=== PATIENT | male | born 1945 | race Caucasian/White ===

== ENCOUNTER 2021-05-05 10:27 | Outpatient (CLI) | payer OTHER, MEDICARE, SELFPAY ==
--- NOTE | ~2021-05-05 | XR_ITS ---
XR knee RT 3V 05/05/2021 10:54 Indication: Right knee pain Procedure: 3 views right knee Comparison: No prior studies for comparison. Findings: No fracture, subluxation or dislocation. No joint space narrowing. No significant joint eff usion. No focal soft tissue abnormality. Impression: 1: No significant bone or joint abnormality. Reviewed, dictated and finalized at location A. NT MANAGEMENT SPECIALIST Impression: 1: No significant bone or joint abnormality.
== END 2021-05-05 10:28 | disposition home or self-care (01) ==
LOC: ANHIMG 10:32
PROVIDERS: PCP Family Medicine; Visit Provider Family Medicine
DX: M25.561 Pain in right knee (principal); G89.29 Other chronic pain
CPT/HCPCS: 73562

== ENCOUNTER 2021-11-04 12:21 | Outpatient (CLI) | payer OTHER, MEDICARE, SELFPAY ==
--- NOTE | ~2021-11-04 | MR_ITS ---
EXAMINATION: MR knee RT wo con DATE: 11/04/2021 13:34 INDICATION: Right knee pain TECHNIQUE: Magnetic resonance imaging (MRI) of the right knee was performed without intravenous contr ast. Sequences included coronal PD-weighted FSE, coronal PD-weighted FS FSE, sagittal T2-weighted FS E, sagittal PD-weighted FS FSE and axial PD weighted fat saturated FSE. COMPARISON: 10/22/2021 FINDINGS: Medial compartment: Medial meniscus is normal. Partial-thickness chondral ulceration with chondral surface regularity but without degenerative subchondral changes along the lateral margin of the anterior to central weightb earing medial femoral condyle. Lateral compartment: Longitudinal horizontal tear at the anterior body and anterior horn of the lateral meniscus. Partial- thickness chondral ulceration involving less than 50% the cartilage thickness but without degenerativ e subchondral changes at the central aspect of the lateral tibial plateau. Patellofemoral compartment: Full-thickness chondral fissuring and fibrillation of the cartilage extending in a band across the me dial patellar facet, apical ridge and lateral facet with underlying cortical irregularity and subarti cular edema-like signal change. Trochlear cartilage is normal. Ligaments and tendons: Anterior and posterior cruciate ligaments are normal. The medial collateral ligament and fibular [place] ateral ligament complex are normal. Mild distal quadriceps tendinopathy without discrete tear. Patell ar tendon is normal. The visualized medial and lateral hamstring tendons as well as the iliotibial ba nd are normal. Fluid: Minimal likely reactive right knee joint effusion. There are couple very small loose osteochondral ubaldo dies in the recess along the anterior margin of the lateral tibial plateau. Small King's cyst. Osseous/other: Normal marrow signal aside from the previous noted degenerative subarticular signal change at the pat yung. No fracture or pathologic marrow replacing process. IMPRESSION: 1. Lateral meniscal tear. 2. 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 Reviewed, dictated and finalized at location B. IMPRESSION: 1. Lateral meniscal tear. 2. Mild tricompartmental osteoarthritis most notable for extensive high-grade p atellar chondromalacia.
== END 2021-11-04 12:22 | disposition home or self-care (01) ==
PROVIDERS: PCP Family Medicine; Visit Provider Family Medicine
DX: S83.281D Other tear of lateral meniscus, current injury, right knee, subsequent encounter (principal); X58.XXXD Exposure to other specified factors, subsequent encounter; M17.11 Unilateral primary osteoarthritis, right knee
CPT/HCPCS: 73721

== ENCOUNTER 2022-04-29 10:07 | Outpatient (CLI) | payer OTHER, MEDICARE, SELFPAY ==
--- NOTE | ~2022-04-29 | NM_ITS ---
EXAMINATION: NM stress w perf spect multi DATE: 04/29/2022 11:50 INDICATION: Chest pain. TECHNIQUE: Rest images were obtained following intravenous administration of 9.44 mCi Tc99m tetrofosm in (Myoview). The patient performed an exercise activity. At peak exercise, 31.77 mCi Tc99m tetrofosm in (Myoview) was administered intravenously, and stress images were obtained. Data was reconstructed into short axis and horizontal and vertical long axis SPECT images. Gated SPECT images were also obta ined. COMPARISON: None. FINDINGS: There is no definite reversible or fixed perfusion abnormality to suggest ischemia or infar ction. There is no segmental wall motion abnormality. Left ventricular ejection fraction measures 6 9%. IMPRESSION: 1. No definite ischemia or infarct. 2. Normal left ventricular ejection fraction measuring 69%. Reviewed, dictated and finalized at location A. POLISHER
--- NOTE | 2022-04-29 10:23 | EST_ITS ---
Patient Info Name: Alex Shepherd Age: 76 years : 1945 Gender: Male Ht: 74 in Wt: 205 lbs BSA: 2.21 m2 HR: 77 bpm BP: 129 / 84 mmHg Heart Rhythm: Sinus Rhythm Exam Date: 04/29/2022 10:57 AM Exam Location: [facility] Stress Patient Status: Outpatient Admit Date: 04/29/2022 Staff Ordering Physician: Nichole Lugo MD Attending Provider: Nichole Lugo MD Exercise Technologist: Svetlana Kendall CT Exercise Physician: Srinivas Grimes DO Exam Type: CA stress test treadmill w NM Study Info Indications R07.9 - Chest pain, unspecified A nuclear stress test was performed. Summary 1. 1. Negative Anish exercise stress test for ischemic ST changes by ECG criteria. 2. 2. Good functional capacity, achieving 9.5 METs of workload. 3. 3. Appropriate HR response to exercise. 4. 4. Appropriate HR recovery at 1 minute post exercise. 5. 5. Nuclear scan to follow and will be reported separately. Please correlate with it. 6. 6. Patient informed of the above results. Protocol: Anish Stress ECG Details Stage: REST Duration (min): 9 min : 52 sec Speed (mph): 0.0 Grade (%): 0 HR (bpm): 77 SBP (mmHg): 129 DBP (mmHg): 84 METS: --- Stage: STAGE 1 Duration (min): 1 min : 0 sec Speed (mph): 1.7 Grade (%): 10 HR (bpm): 92 SBP (mmHg): 129 DBP (mmHg): 84 METS: --- Stage: STAGE 1 Duration (min): 2 min : 0 sec Speed (mph): 1.7 Grade (%): 10 HR (bpm): 97 SBP (mmHg): 129 DBP (mmHg): 84 METS: --- Stage: STAGE 1 Duration (min): 3 min : 0 sec Speed (mph): 1.7 Grade (%): 10 HR (bpm): 101 SBP (mmHg): 150 DBP (mmHg): 85 METS: --- Stage: STAGE 2 Duration (min): 1 min : 0 sec Speed (mph): 2.5 Grade (%): 12 HR (bpm): 108 SBP (mmHg): 150 DBP (mmHg): 85 METS: --- Stage: STAGE 2 Duration (min): 2 min : 0 sec Speed (mph): 2.5 Grade (%): 12 HR (bpm): 116 SBP (mmHg): 163 DBP (mmHg): 85 METS: --- Stage: STAGE 2 Duration (min): 3 min : 0 sec Speed (mph): 2.5 Grade (%): 12 HR (bpm): 119 SBP (mmHg): 163 DBP (mmHg): 85 METS: --- Stage: STAGE 3 Duration (min): 1 min : 0 sec Speed (mph): 3.4 Grade (%): 14 HR (bpm): 130 SBP (mmHg): 173 DBP (mmHg): 90 METS: --- Stage: STAGE 3 Duration (min): 1 min : 25 sec Speed (mph): 3.4 Grade (%): 14 HR (bpm): 131 SBP (mmHg): 173 DBP (mmHg): 90 METS: --- Stage: RECOVERY Duration (min): 0 min : 34 sec Speed (mph): 0.0 Grade (%): 0 HR (bpm): 115 SBP (mmHg): 173 DBP (mmHg): 90 METS: --- Stage: RECOVERY Duration (min): 1 min : 34 sec Speed (mph): 0.0 Grade (%): 0 HR (bpm): 91 SBP (mmHg): 173 DBP (mmHg): 90 METS: --- Stage: RECOVERY Duration (min): 2 min : 34 sec Speed (mph): 0.0 Grade (%): 0 HR (bpm): 86 SBP (mmHg): 173 DBP
== END 2022-04-29 10:08 | disposition home or self-care (01) ==
PROVIDERS: PCP Family Medicine; Visit Provider Family Medicine
DX: R07.9 Chest pain, unspecified (principal)
CPT/HCPCS: 78452; 93017; A9502

== ENCOUNTER 2022-05-15 08:18 | Outpatient (CLI) | payer OTHER, MEDICARE, SELFPAY ==
--- NOTE | 2022-06-03 14:05 | WPDHOMESLEEP ---
Sleep Study - Home Unattended Date of Study: 05/15/22 Ordering Provider: Franchesca Lugo MD Interpreting Provider: Annika Scott, DO Home Sleep Study Type: Watch PAT Height: 1.88 m Weight: 92.986 kg Body Mass Index: 26.3 Neck Circumference (inches): 15.25 [place]: 12 Reason for Sleep Study Daytime hypersomnia, witnessed apneas Sleep History The patient is a 76-year-old male with diabetes, dyslipidemia, hypertension and history of tobacco use that had a sleep study ordered by his primary care for evaluation of sleep apnea. The patient rarely awakens from sleep short of breath. He occasionally awakens at night with heartburn, belching or cough. He frequently snores and constantly loudly enough that others complain. He rarely has trouble sleeping when he has a cold. He occasionally wakes up gasping for air throughout the night. He frequently has breathing problems at night observed by himself or others. He occasionally sweats excessively at night. He rarely has heart palpitations or irregular heartbeats during the night. He frequently falls asleep during the day but rarely falls asleep while driving. He denies sleep paralysis and cataplexy. He occasionally has trouble at school or work due to sleepiness. He occasionally experiences vivid dreamlike scenes upon awakening or falling asleep. He denies feeling afraid of going to sleep. He rarely has nightmares. He occasionally remembers his dreams. He occasionally has thoughts racing through his mind. He denies feeling sad or depressed. He rarely has anxiety. He occasionally has muscular tension. He rarely notices parts of his body jerk. He rarely kicks during the night. He occasionally has crawling and aching feelings in his legs and occasionally has leg pain during the night. He frequently grinds his teeth during sleep but never awakens with morning jaw pain. He is occasionally bothered by pain during the day and occasionally awakened by pain during the night. He occasionally wakes up feeling stiff in the morning. He occasionally wakes up with sore achy muscles. He rarely wakes up with pain in the neck, spine or joints. He goes to bed between 1-2 a.m. on both weekdays and weekends. He is able to fall asleep within 5 minutes. He wakes up twice throughout the night to urinate. He is able fall back asleep within 5-10 minutes. He wakes up between 8-9 a.m. on weekdays and between 9-11 a.m. on the weekends. He typically gets 6-7 hours of sleep per night. He will stay in bed for 5 minutes after waking up in the morning. He currently lives with his . He denies consuming any caffeinated beverages within 2 hours of bedtime. He does engage in physical exercise before bedtime. He will read before falling asleep. He denies watching television before falling asleep. He will take naps in the afternoon or the evening and they are refreshing. He drinks 6 caffeinated beverages per day. He quit smoking 32 years ago. He denies alcohol and recreational drug use. [facility] Past Medical History Medical History Acne rosacea Chondromalacia of both patellae Dyslipidemia Essential (primary) hypertension Lateral meniscus tear Right knee pain Type 2 diabetes mellitus without complication, without long-term current use of insulin Surgical History Surgical History History of foot surgery b/l 2nd toe for hammer toes when 16 years old Family History Family History Father Family history of type 2 diabetes mellitus Mother Family history of type 2 diabetes mellitus H/O multiple myeloma Sibling Acute Crohn's disease Unknown Family history of cancer Multiple myeloma and stomach. Other Asthma Hypertension Social History Social History
[2022-06-03 14:15] VITALS: BMI 26.3
== END 2022-05-16 12:06 | disposition home or self-care (01) ==
LOC: ANHCSM 08:21
PROVIDERS: PCP Family Medicine; Visit Provider Family Medicine
DX: G47.10 Hypersomnia, unspecified (principal); G47.33 Obstructive sleep apnea (adult) (pediatric)
CPT/HCPCS: 95800

== ENCOUNTER 2022-07-04 01:21 | Day surgery (SDC) | payer OTHER, MEDICARE, SELFPAY ==
[2022-06-24 12:02] VITALS: BMI 26.3
--- NOTE | 2022-07-03 13:24 | PM.HPGS ---
History of Present Illness History of Present Illness Consent: Risks, benefits, and alternatives have been discussed and questions answered. Patient agrees to proceed with procedure. Chief complaint: neoplasm screening Narrative: Alex Shepherd is a 76 year old male Referred for colon cancer screening. Review of Systems Review of Systems: All systems reviewed & are unremarkable except as noted in HPI and below PMFSH Past Medical History Medical History Acne rosacea Chondromalacia of both patellae Dyslipidemia Essential (primary) hypertension Lateral meniscus tear Right knee pain Type 2 diabetes mellitus without complication, without long-term current use of insulin Surgical History Surgical History History of foot surgery b/l 2nd toe for hammer toes when 16 years old Family History Family History Father Family history of type 2 diabetes mellitus Mother Family history of type 2 diabetes mellitus H/O multiple myeloma Sibling Acute Crohn's disease Unknown Family history of cancer Multiple myeloma and stomach. 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 [employer] Gender identity (if verbalized by the patient): Male Sexual Orientation (if Verbalized by the Patient): Straight or Heterosexual Spiritual care concerns: No Meds Home Medications and Allergies Home Medications Medication Instructions Recorded Confirmed Type blood-glucose meter (Accu-Chek #1 ea 09/03/19 07/04/22 Rx Guide Glucose Meter) sildenafil 100 mg tablet 100 mg PO DAILY PRN sexual 04/11/20 07/04/22 Rx activity #10 tabs blood sugar diagnostic #100 ea 11/21/20 07/04/22 Rx lancets (OneTouch UltraSoft #100 ea 11/21/20 07/04/22 Rx Lancets) aspirin 325 mg tablet 325 mg PO DAILY 04/17/22 07/04/22 History hydrochlorothiazide 25 mg tablet 25 mg PO DAILY #90 tabs 04/17/22 07/04/22 Rx multivitamin 1 tablet PO DAILY 04/17/22 07/04/22 History amlodipine 10 mg tablet 10 mg PO DAILY #90 tabs 05/21/22 07/04/22 Rx empagliflozin 25 mg tablet 25 mg PO DAILY #90 tabs 05/21/22 07/04/22 Rx (Jardiance) metformin 500 mg tablet,extended 2,000 mg PO DAILY #360 tabs 06/10/22 07/04/22 Rx release 24 hr rosuvastatin 5 mg tablet 5 mg PO QPM #90 tabs 07/02/22 07/04/22 Rx Allergies Allergy/AdvReac Type Severity Reaction Status Date / Time No Known Allergies Allergy Verified 07/04/22 09:24 Exam Resp: Auscultation: clear to auscultation bilaterally Cardio: Rate: regular rate Rhythm: regular rhythm GI: GI Palp: Yes Soft to palpation and No Tenderness to palpation present (GI) Assessment and Plan Assessment and plan (1) Colon cancer screening: Code(s): Z12.11 - Encounter for screening for malignant neoplasm of colon Status: Acute Assessment and Plan: Colonoscopy with possible biopsy or polypectomy or cautery or injection of substances.
[2022-07-04 09:24] LABS: Glucose Point of Care 137 mg/dl (65-105)
[2022-07-04 09:25] VITALS: BP 123/76; PULSE 80; RESP 18; TEMP 36.4; O2SAT 99
[2022-07-04] MEDS: LACTATED RINGERS 1,000 ML 150 ML IV CONT (09:27)
--- NOTE | 2022-07-04 09:30 | WPDANESEPPF ---
Anes - Initial Pre Proc Eval Procedure: Operation Date: 07/04/22 10:30 Proposed Procedures p Screening Colonoscopy - Alex Angela MD Date/Time: 07/04/22 09:30 Surgeon: Alex Angela MD Pre Op Diagnosis: neoplasm screening Patient Data Age: 76 Gender: M Height: 1.88 m Weight: 92 kg Last Vital Signs Temp 36.4 C L 07/04/22 09:25 Pulse 80 07/04/22 09:25 Resp 18 07/04/22 09:25 BP 123/76 07/04/22 09:25 Pulse Ox 99 07/04/22 09:25 O2 Del Method Room Air 07/04/22 09:25 Allergies Allergy/AdvReac Type Severity Reaction Status Date / Time No Known Allergies Allergy Verified 07/04/22 09:24 Home Medications Medication Instructions Recorded Confirmed Type blood-glucose meter (Accu-Chek #1 ea 09/03/19 07/04/22 Rx Guide Glucose Meter) sildenafil 100 mg tablet 100 mg PO DAILY PRN sexual 04/11/20 07/04/22 Rx activity #10 tabs blood sugar diagnostic #100 ea 11/21/20 07/04/22 Rx lancets (OneTouch UltraSoft #100 ea 11/21/20 07/04/22 Rx Lancets) aspirin 325 mg tablet 325 mg PO DAILY 04/17/22 07/04/22 History hydrochlorothiazide 25 mg tablet 25 mg PO DAILY #90 tabs 04/17/22 07/04/22 Rx multivitamin 1 tablet PO DAILY 04/17/22 07/04/22 History amlodipine 10 mg tablet 10 mg PO DAILY #90 tabs 05/21/22 07/04/22 Rx empagliflozin 25 mg tablet 25 mg PO DAILY #90 tabs 05/21/22 07/04/22 Rx (Jardiance) metformin 500 mg tablet,extended 2,000 mg PO DAILY #360 tabs 06/10/22 07/04/22 Rx release 24 hr rosuvastatin 5 mg tablet 5 mg PO QPM #90 tabs 07/02/22 07/04/22 Rx Laboratory Tests 07/04/22 09:21 POC Capillary Glucose 137 mg/dl H mg/dl (65-105) Patient hx anesthesia problems: none Family hx anesthesia problems: none Results Review: All pre-operative results and documents have been reviewed as part of the pre-operative evaluation. [facility] Past Medical History Medical History Acne rosacea Chondromalacia of both patellae Dyslipidemia Essential (primary) hypertension Lateral meniscus tear Right knee pain Type 2 diabetes mellitus without complication, without long-term current use of insulin Surgical History Surgical History History of foot surgery b/l 2nd toe for hammer toes when 16 years old Family History Family History Father Family history of type 2 diabetes mellitus Mother Family history of type 2 diabetes mellitus H/O multiple myeloma Sibling Acute Crohn's disease Unknown Family history of cancer Multiple myeloma and stomach. 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 [employer] Gender identity (if verbalized by the patient): Male Sexual Orientation (if Verbalized by the Patient): Straight or Heterosexual Spiritual care concerns: No Anes - Eval Final PreProcedure Day of Procedure 07/04/22 09:30 Patient weight: normal Heart: regular rate and rhythm Lungs: clear to auscultation Airway: Mallampati scale class II Neurological: alert and oriented Last oral intake: >/= 8 hours ASA classification: III Emergent: no Anesthetic plan: proceed Anesthesia type and monitoring: general GIVS and standard monitoring Results Review: All pre-operative results a
[2022-07-04 11:08] VITALS: BP 98/70; PULSE 77; RESP 19; O2SAT 94
[2022-07-04 11:18] VITALS: BP 105/91; PULSE 77; RESP 20; O2SAT 99
[2022-07-04 11:28] VITALS: BP 114/63; PULSE 75; RESP 24; O2SAT 98
== END 2022-07-04 11:31 | disposition home or self-care (01) ==
PROVIDERS: PCP Family Medicine; Visit Provider Internal Medicine Gastroenterology
PROC: 0DJD8ZZ Inspection of Lower Intestinal Tract, Via Natural or Artificial Opening Endoscopic (ICD-10-PCS; CPT 45378; principal; 2022-07-04 10:30)
DX: Z12.11 Encounter for screening for malignant neoplasm of colon (principal); K64.4 Residual hemorrhoidal skin tags; K64.8 Other hemorrhoids; K57.30 Diverticulosis of large intestine without perforation or abscess without bleeding; I10 Essential (primary) hypertension; E78.5 Hyperlipidemia, unspecified; E11.9 Type 2 diabetes mellitus without complications; Z87.891 Personal history of nicotine dependence; Z79.84 Long term (current) use of oral hypoglycemic drugs
CPT/HCPCS: 45378; 82948; J2704; J7120

== ENCOUNTER → 2023-09-02 14:19 | Outpatient (REF) | payer OTHER, MEDICARE, SELFPAY | LOC: ANHLAB 14:19 | PROVIDERS: PCP Family Medicine; Visit Provider Plastic Surgery | DX: R22.0 Localized swelling, mass and lump, head (principal); R22.1 Localized swelling, mass and lump, neck | CPT/HCPCS: 88304 ==

== ENCOUNTER 2024-11-03 13:49 | Outpatient (CLI) | payer OTHER, MEDICARE, SELFPAY ==
--- NOTE | ~2024-11-03 | XR_ITS ---
Lumbosacral Spine: AP, oblique, and lateral views Clinical History: Pain Findings: The normal lordotic curve is maintained. The vertebral bodies and posterior elements are i ntact. Mild degenerative disc changes are present. Moderate facet arthropathy present at the lower lita mbar spine. The sacroiliac joints are normally outlined. Impression: Mild to possibly moderate degenerative spondylosis overall, as detailed above. Reviewed, dictated and finalized at location M. Impression: Mild to possibly moderate degenerative spondylosis overall, as detailed above.
== END 2024-11-03 13:50 | disposition home or self-care (01) ==
LOC: GOSHIMG 13:49
PROVIDERS: PCP Family Medicine; Visit Provider Family Medicine
DX: M47.816 Spondylosis without myelopathy or radiculopathy, lumbar region (principal)
CPT/HCPCS: 72110